=== PATIENT | male | born 1975 | race Caucasian/White ===

== ENCOUNTER 2017-02-26 11:33 | Emergency (ER) | payer BC ==
[~2017-02-26] VITALS: Ht 185.4 cm; Wt 150.0 kg
[2017-02-26 11:42] VITALS: TEMP 98.7
[2017-02-26] MEDS ORDERED: COZAAR100 MG PO (11:46)
[2017-02-26] MEDS ORDERED: SYNTHROID0.175 MG PO (11:46)
[2017-02-26] MEDS ORDERED: INDOCIN 25MG CA25 MG PO (11:46)
[2017-02-26] MEDS ORDERED: NORCO 325 MG-51 TAB PO (15:23)
[2017-02-26] MEDS ORDERED: INDOCIN50 MG PO (15:29)
[2017-02-26 15:36] VITALS: BP 139/95; PULSE 65
== END 2017-02-26 15:57 | disposition home or self-care (01) ==
LOC: COL.ER 11:33
DX: M25.572 Pain in left ankle and joints of left foot (principal); Z86.39 Personal history of other endocrine, nutritional and metabolic disease; I10 Essential (primary) hypertension